=== PATIENT | female | born 1950 | race Caucasian/White ===

== ENCOUNTER → 2017-04-21 | Outpatient (CLI) | payer MEDICARE ==
[~2017-04-21] MED LIST: CYAN10002 IM; ESTR1PAT40 TD; MULT-658 PO
== END | disposition home or self-care (01) ==
LOC: STAR 09:00
PROVIDERS: ATTEND Surgery
DX: Z01.818 Encounter for other preprocedural examination (principal); R94.31 Abnormal electrocardiogram [ECG] [EKG]
CPT/HCPCS: 93005

== ENCOUNTER 2017-04-27 11:32 | Day surgery (SDC) | payer MEDICARE ==
[~2017-04-27] VITALS: Ht 157.5 cm; Wt 59.5 kg
[~2017-04-27 11:32] MED LIST changes: +BUPIVACAINE/PF 0.5% ONE; +EPINEPHRINE 1 MG/ML, 1ML ONE
[2017-04-27] MEDS ORDERED: LACTATED RINGERS 1,000 ML IV SCH (11:51)
[2017-04-27] MEDS ORDERED: FENTANYL PF 250 MCG/5ML ONE (15:02)
[2017-04-27] MEDS ORDERED: ONDANSETRON 2MG/ML, 2ML ONE (15:13)
[2017-04-27] MEDS ORDERED: CEFAZOLIN 1,000 MG ONE (15:13)
[2017-04-27] MEDS ORDERED: DEXAMETHASONE 4 MG/ML, 1ML ONE (15:13)
[2017-04-27] MEDS ORDERED: SUCCINYLCHOLINE 20 MG/ML, 10ML ONE (15:13)
[2017-04-27] MEDS ORDERED: PROMETHAZINE 25 MG/ML, 1ML IV PRN (17:00)
[2017-04-27] MEDS ORDERED: ACETAMINOPHEN 650 MG/20.3 ML UDC ONE (17:00)
[2017-04-27] MEDS ORDERED: OXYcodone 5 MG/5 ML ORAL.SOL UDC PO PRN (17:00)
[2017-04-27] MEDS ORDERED: ACETAMINOPHEN 325 MG TABLET PO PRN (17:00)
[2017-04-27] MEDS ORDERED: OXYcodone 5 MG/5 ML ORAL.SOL UDC ONE (17:01)
[2017-04-27] MEDS ORDERED: FENTANYL PF 100 MCG/2ML ONE (17:01)
[2017-04-27] MEDS: FENTANYL PF 100 MCG/2ML IV PRN ×2 (17:05→17:12)
[2017-04-27 17:22] LABS: IOPTH BASELINE 1055 pg/mL; SAMPLE 5 %DROP IOPTH 97 %; SAMPLE 6 %DROP IOPTH 97 %
== END 2017-04-27 19:05 | disposition home or self-care (01) ==
LOC: OUT 11:32
PROVIDERS: ATTEND Surgery
DX: E21.0 Primary hyperparathyroidism (principal); E83.52 Hypercalcemia; Z88.8 Allergy status to other drugs, medicaments and biological substances
CPT/HCPCS: 36415; 60500; 83970; 88307; 88331; C1760; J0171; J0330; J0690; J1100; J2405; J3010; J3490; J7120